=== PATIENT | male | born 1990 | race Two or more races ===

== ENCOUNTER 2019-09-06 12:58 | Emergency (ER) | payer OTHER ==
[~2019-09-06] VITALS: Ht 170.2 cm; Wt 81.6 kg
[2019-09-06 13:03] VITALS: BP 117/70
== END 2019-09-06 13:52 | disposition home or self-care (01) ==
LOC: ER 12:58
DX: R09.81 Nasal congestion (principal); R05 Cough

== ENCOUNTER 2025-04-17 23:48 | Emergency (ER) | payer OTHER ==
[~2025-04-17] VITALS: Ht 175.3 cm; Wt 77.1 kg
[2025-04-18] MEDS ORDERED: MORPHINE SULFATE INJ 4 MG/ML DISP.SYRIN ONE (00:09)
[2025-04-18] MEDS ORDERED: TDAP [DIPH/PERTUSSIS/TET] 0.5 ML VIAL IM ONE (00:09)
[2025-04-18] MEDS ORDERED: IOHEXOL-300 100 ML VIAL IV ONE (00:12)
[2025-04-18] MEDS ORDERED: CT SWABBABLE VALVE TRANS SET 1 EA INFUS.SET MC ONE (00:12)
[2025-04-18] MEDS ORDERED: IV NS 0.9% 250 ML IV ONE (00:12)
[2025-04-18] MEDS: MORPHINE SULFATE INJ 2 MG/ML DISP.SYRIN IV ONE (00:18)
[2025-04-18] MEDS: IV NS 0.9% 1,000 ML BAG IV ONE (00:18)
[2025-04-18 00:24] LABS: PLATELET COUNT (AUTO) 247 K/uL (150-450); RED BLOOD CELL COUNT(AUTO) 5.64 MIL/uL (4.5-6.0); RED CELL DISTRIBUTION WIDTH 13.5 % (11.5-15.0); WHITE BLOOD COUNT (AUTO) 8.3 K/uL (4.3-11.0)
[2025-04-18 00:33] LABS: CALCIUM, SERUM 8.9 mg/dL (8.5-10.1); CREATININE 1.5 mg/dL (0.6-1.3); SODIUM SERUM 140.0 mmol/L (136-145); UREA NITROGEN, BLOOD 12.0 mg/dL (7-18)
[2025-04-18 00:37] LABS: INR 1.0 (0.91-1.10)
[2025-04-18 00:38] LABS: ASPARTATE AMINOTRANSFERASE 22.0 U/L (15-37); TOTAL PROTEIN, SERUM 8.4 g/dL (6.4-8.2)
[2025-04-18] MEDS: TDAP [DIPH/PERTUSSIS/TET] 0.5 ML VIAL IM ONE (01:14)
[2025-04-18] MEDS ORDERED: KETO10TA2 PO (03:14)
[2025-04-18] MEDS ORDERED: IBUPROFEN 400 MG TABLET ONE (03:17)
[2025-04-18] MEDS: IBUPROFEN 400 MG TABLET PO ONE (03:49)
[2025-04-18 03:50] VITALS: BP 133/71; TEMP 98.1; O2SAT 98
== END 2025-04-18 03:51 | disposition home or self-care (01) ==
LOC: ER 23:52
DX: S01.01XA Laceration without foreign body of scalp, initial encounter (principal); M25.562 Pain in left knee; M79.641 Pain in right hand; Z87.820 Personal history of traumatic brain injury; W19.XXXA Unspecified fall, initial encounter; Y93.89 Activity, other specified; Y92.89 Other specified places as the place of occurrence of the external cause; Y99.8 Other external cause status
CPT/HCPCS: 99285; 12002; 72125; 96374; 96361; 90471; 90715; 73564; 71260; 70450; 70486; 74177; 85025; 80048; 80076; 36415; 85730; 86850; J2270; J7050; Q9967